=== PATIENT | female | born 1995 | race Caucasian/White ===

== ENCOUNTER 2019-08-15 21:09 | Emergency (ER) | payer MEDICAID ==
[~2019-08-15] VITALS: Ht 162.6 cm; Wt 57.0 kg
[2019-08-15 21:13] VITALS: BP 114/48
== END 2019-08-15 21:37 | disposition home or self-care (01) ==
LOC: ED 21:30
DX: K02.9 Dental caries, unspecified (principal)
CPT/HCPCS: 99283